=== PATIENT | female | born 1985 | race Two or more races ===

== ENCOUNTER 2020-09-03 13:56 | Emergency (ER) | payer OTHER ==
[~2020-09-03] VITALS: Ht 157.5 cm; Wt 59.0 kg
[2020-09-03] MEDS ORDERED: [UNRECOGNIZED DRUG - OTHER] PO (14:08)
== END 2020-09-03 20:07 | disposition home or self-care (01) ==
LOC: ER 13:56
DX: O20.0 Threatened abortion (principal); O36.80X0 Pregnancy with inconclusive fetal viability, not applicable or unspecified; O26.892 Other specified pregnancy related conditions, second trimester; Z03.818 Encounter for observation for suspected exposure to other biological agents ruled out; Z3A.01 Less than 8 weeks gestation of pregnancy